=== PATIENT | male | born 1975 | race Caucasian/White ===

== ENCOUNTER 2019-04-28 16:19 | Emergency (ER) | payer OTHER, BC ==
[~2019-04-28] VITALS: Ht 193 cm; Wt 111.1 kg
[2019-04-28 16:30] LABS: URINE BILIRUBIN NEGATIVE (Negative); URINE BLOOD NEGATIVE (Negative); URINE CLARITY CLEAR; URINE COLOR YELLOW; URINE GLUCOSE-RANDOM NEGATIVE (Negative); URINE KETONES NEGATIVE (Negative); URINE LEUKOCYTES-REFLEX NEGATIVE (Negative); URINE NITRITE-REFLEX NEGATIVE (Negative); URINE PROTEIN TRACE (Negative); URINE SPECIFIC GRAVITY >= 1.030 (1.005-1.030); URINE UROBILINOGEN 0.2 E.U./dl (0.2-1.0)
[2019-04-28] MEDS ORDERED: OMEPRAZOLE20 M2 PO (16:37)
[2019-04-28 16:57] LABS: ABSOLUTE BASOPHILS 0.1 thou/uL (0.0-0.2); ABSOLUTE EOSINOPHILS 0.4 thou/uL (0.0-0.7); ABSOLUTE LYMPHOCYTES 2.5 thou/uL (0.8-5.3); ABSOLUTE MONOCYTES 0.7 thou/uL (0.0-1.2); ABSOLUTE NEUTROPHILS 5.5 thou/uL (1.6-8.1); BASOPHILS 0.6 %; EOSINOPHILS 3.9 %; HEMATOCRIT 41.7 % (42.0-52.0); HEMOGLOBIN 14.2 gm/dL (14.0-18.0); LYMPHOCYTES 27.2 %; MCH 30.2 pg (26.0-34.0); MCV 88.9 fL (80.0-100.0); MONOCYTES 7.7 %; MPV 6.6 fl. (7.2-11.1); NUCLEATED RBCS 0 /100WBC; PLATELET COUNT* 298 thou/uL (150-400); POLYS 60.6 %; RBC 4.69 mil/uL (4.50-6.00); RDW-CV 13.4 % (10.5-14.5)
[2019-04-28 17:06] LABS: CALCIUM 8.8 mg/dL (8.5-10.1); CREATININE 1.2 mg/dL (0.6-1.3); POTASSIUM 3.8 mmol/L (3.5-5.1)
[2019-04-28 17:10] LABS: ALBUMIN 3.7 g/dL (3.4-5.0); TOTAL BILIRUBIN 0.2 mg/dL (<0.1-1.0); TOTAL PROTEIN 7.5 g/dL (6.4-8.2)
[2019-04-28] MEDS ORDERED: BENTYL 20 MG TA20 M1 PO (17:53)
[2019-04-28] MEDS ORDERED: ROBAXIN500 MG PO (17:53)
[2019-04-28 18:10] VITALS: BP 127/92
== END 2019-04-28 18:12 | disposition home or self-care (01) ==
LOC: M.ERS 16:19
PROVIDERS: Nurse Practitioner Family
DX: S29.012A Strain of muscle and tendon of back wall of thorax, initial encounter (principal); R10.31 Right lower quadrant pain; K21.9 Gastro-esophageal reflux disease without esophagitis; R30.0 Dysuria; Z87.442 Personal history of urinary calculi; X58.XXXA Exposure to other specified factors, initial encounter; Y93.89 Activity, other specified; Y92.89 Other specified places as the place of occurrence of the external cause; Y99.8 Other external cause status

== ENCOUNTER → 2019-07-09 | Outpatient (CLI) | payer OTHER, BC ==
[~2019-07-09] MED LIST: BENTYL 20 MG TA20 M1 PO; HYDROCODON-ACE1 EAC8 PO; IBUPROFEN 800800 M1 PO; NEURONTIN 300300 M1 PO; OMEPRAZOLE 20 M20 M1 PO; OMEPRAZOLE20 M2 PO; ROBAXIN500 MG PO; TRAMADOL 50 MG50 MG PO; ZOFRAN ODT4 MG PO
== END ==
LOC: M.PC 05:14
DX: M47.814 Spondylosis without myelopathy or radiculopathy, thoracic region (principal); M51.34 Other intervertebral disc degeneration, thoracic region

== ENCOUNTER → 2019-07-16 | Outpatient (CLI) | payer OTHER, BC | END | disposition home or self-care (01) | LOC: M.PC 01:42 | DX: M79.18 Myalgia, other site (principal); M54.9 Dorsalgia, unspecified; K21.9 Gastro-esophageal reflux disease without esophagitis; Z79.899 Other long term (current) drug therapy; Z86.19 Personal history of other infectious and parasitic diseases; Z98.890 Other specified postprocedural states ==

== ENCOUNTER → 2019-07-23 | Outpatient (CLI) | payer OTHER, BC | LOC: M.PC 04:55 | DX: M51.34 Other intervertebral disc degeneration, thoracic region (principal); M47.814 Spondylosis without myelopathy or radiculopathy, thoracic region; M79.18 Myalgia, other site; K21.9 Gastro-esophageal reflux disease without esophagitis ==

== ENCOUNTER 2019-08-01 03:13 | Emergency (ER) | payer OTHER, BC ==
[~2019-08-01] VITALS: Ht 193 cm; Wt 113.4 kg
[~2019-08-01 03:13] MED LIST changes: -HYDROCODON-ACE1 EAC8 PO; -OMEPRAZOLE 20 M20 M1 PO; -ZOFRAN ODT4 MG PO
[2019-08-01] MEDS ORDERED: OMEPRAZOLE 20 M20 M1 PO (03:24)
[2019-08-01 03:54] LABS: ABSOLUTE BASOPHILS 0.1 thou/uL (0.0-0.2); ABSOLUTE EOSINOPHILS 0.5 thou/uL (0.0-0.7); ABSOLUTE LYMPHOCYTES 2.5 thou/uL (0.8-5.3); ABSOLUTE MONOCYTES 0.8 thou/uL (0.0-1.2); ABSOLUTE NEUTROPHILS 5.3 thou/uL (1.6-8.1); BASOPHILS 0.8 %; HEMATOCRIT 39.6 % (42.0-52.0); HEMOGLOBIN 13.5 gm/dL (14.0-18.0); MCH 30.5 pg (26.0-34.0); MCHC 34.1 g/dL (28.0-37.0); MCV 89.7 fL (80.0-100.0); MPV 6.6 fl. (7.2-11.1); NUCLEATED RBCS 0 /100WBC; PLATELET COUNT* 297 thou/uL (150-400); POLYS 58.2 %; RBC 4.42 mil/uL (4.50-6.00); RDW-CV 13.1 % (10.5-14.5); WBC 9.1 thou/uL (4.0-11.0)
[2019-08-01 04:10] LABS: CALCIUM 8.4 mg/dL (8.5-10.1); CREATININE 1.1 mg/dL (0.6-1.3)
[2019-08-01 04:12] LABS: URINE BILIRUBIN NEGATIVE (Negative); URINE BLOOD NEGATIVE (Negative); URINE CLARITY CLEAR; URINE COLOR YELLOW; URINE GLUCOSE-RANDOM NEGATIVE (Negative); URINE KETONES NEGATIVE (Negative); URINE LEUKOCYTES-REFLEX NEGATIVE (Negative); URINE NITRITE-REFLEX NEGATIVE (Negative); URINE PROTEIN NEGATIVE (Negative); URINE UROBILINOGEN 0.2 E.U./dl (0.2-1.0)
[2019-08-01 04:15] LABS: ALBUMIN 3.4 g/dL (3.4-5.0); TOTAL BILIRUBIN 0.2 mg/dL (<0.1-1.0); TOTAL PROTEIN 7.3 g/dL (6.4-8.2)
[2019-08-01] MEDS ORDERED: ZOFRAN ODT4 MG PO (05:19)
[2019-08-01] MEDS ORDERED: HYDROCODON-ACE1 EAC8 PO (05:19)
[2019-08-01 05:26] VITALS: BP 128/79
== END 2019-08-01 05:32 | disposition home or self-care (01) ==
LOC: M.ERS 03:13
PROVIDERS: Emergency Medicine
DX: R10.11 Right upper quadrant pain (principal); K21.9 Gastro-esophageal reflux disease without esophagitis

== ENCOUNTER → 2019-08-01 | Outpatient (CLI) | payer OTHER, BC | END | disposition home or self-care (01) | LOC: M.PC 07-30 11:30 | DX: M54.9 Dorsalgia, unspecified (principal); M51.14 Intervertebral disc disorders with radiculopathy, thoracic region; M47.24 Other spondylosis with radiculopathy, thoracic region; M79.18 Myalgia, other site; K21.9 Gastro-esophageal reflux disease without esophagitis; Z98.890 Other specified postprocedural states; Z86.19 Personal history of other infectious and parasitic diseases; Z79.899 Other long term (current) drug therapy ==

== ENCOUNTER → 2019-08-13 | Outpatient (CLI) | payer OTHER, BC ==
[~2019-08-13] MED LIST changes: +HYDROCODON-ACE1 EAC8 PO; +OMEPRAZOLE 20 M20 M1 PO; +ZOFRAN ODT4 MG PO
== END ==
LOC: M.PC 04:36
DX: M47.24 Other spondylosis with radiculopathy, thoracic region (principal); M51.14 Intervertebral disc disorders with radiculopathy, thoracic region; M79.18 Myalgia, other site

== ENCOUNTER → 2019-09-03 | Outpatient (CLI) | payer OTHER, BC | END | disposition home or self-care (01) | LOC: M.PC 11:40 | DX: M54.14 Radiculopathy, thoracic region (principal); M51.34 Other intervertebral disc degeneration, thoracic region; M47.894 Other spondylosis, thoracic region; M54.9 Dorsalgia, unspecified; K21.9 Gastro-esophageal reflux disease without esophagitis; Z98.890 Other specified postprocedural states; Z86.19 Personal history of other infectious and parasitic diseases ==

== ENCOUNTER → 2019-09-17 | Outpatient (CLI) | payer OTHER, BC | LOC: M.PC 01:01 | DX: M51.14 Intervertebral disc disorders with radiculopathy, thoracic region (principal); K21.9 Gastro-esophageal reflux disease without esophagitis; Z86.19 Personal history of other infectious and parasitic diseases ==

== ENCOUNTER → 2019-10-08 | Outpatient (CLI) | payer OTHER, BC | LOC: M.PC 01:15 | DX: M47.24 Other spondylosis with radiculopathy, thoracic region (principal); M79.18 Myalgia, other site; Z79.899 Other long term (current) drug therapy ==